=== PATIENT | female | born 1950 | race Caucasian/White ===

== ENCOUNTER 2016-09-27 19:43 | Emergency (ER) | payer MEDICARE, BC ==
--- NOTE | 2016-10-05 11:03 | ER ---
ADMIT: 09/27/2016 RM/LOC: ER [facility] MR#: [id number] [address] [id number] DEISI HULL Tae [address] [place] [address] Emergency Room Report SEX: F AGE: 65 : 1950 DATE: 09/27/2016 ADDENDUM: CHIEF COMPLAINT: Rash. HISTORY OF PRESENT ILLNESS: This 65-year-old female, who has had this exact same rash just back at [facility]. She was on some steroids and then it went away. At this time, she is actually on an antibiotic and just finishing her prednisone today. She started this petechial rash, it covers her legs up and extends into her abdomen just below the umbilical. COURSE IN THE EMERGENCY ROOM: CBC was normal except for white count of 13.4, her platelets were normal at 296, hemoglobin normal at 14.1. UA is normal except for 2+ leukocyte esterase and 7 red blood cells. Culture setup will be done. She is on Augmentin now, so I am not placing her on any different antibiotics. Her sedimentation rate is elevated slightly at 24, CRP is normal at 0.29, CMP is normal except for a BUN of 20 and creatinine of 1.3, which is stable for her. I am upping her prednisone dose, I am giving her 20 mg here to give her a total of 60 mg a day, having her do 60 mg for the next 2 days then taper down to 20 mg daily. She will follow up with either Dr. Rico or Dr. Judd this week. CLINICAL IMPRESSION: Vasculitis. DISPOSITION: Stable at discharge and will follow up with one of her doctors this week. SPRING Sigala / Olivier Lockwood MD / philippe JOB #: [id number] CC: Olivier Lockwood MD, Attending Physician
== END 2016-09-27 22:30 | disposition home or self-care (01) ==
LOC: ER 19:43
DX: I77.6 Arteritis, unspecified (principal); M06.9 Rheumatoid arthritis, unspecified; Z98.890 Other specified postprocedural states